=== PATIENT | male | born 1975 | race Hispanic/Latino ===

== ENCOUNTER → 2018-08-07 17:42 | Outpatient (CLI) | payer OTHER, SELFPAY ==
[2018-08-07 19:00] LABS: Influenza A and B by PCR Rapid Negative (Negative)
== END ==
PROVIDERS: Visit Provider Physician Assistant
DX: R68.89 Other general symptoms and signs (principal)
CPT/HCPCS: 87400

== ENCOUNTER → 2018-08-07 17:56 | Outpatient (CLI) | payer OTHER, SELFPAY ==
--- NOTE | 2018-08-07 18:03 | DI.RAD.S_ITS ---
PROCEDURE: XR CHEST 2V INDICATIONS: cough TECHNIQUE: 2 views of the chest were acquired. COMPARISON: None. FINDINGS: Surgical changes and devices: None. Lungs and pleura: No pleural effusions or pneumothorax. Lungs are clear. Mediastinum: Mediastinal contours are normal. Heart size is normal. Bones and chest wall: No suspicious bony abnormalities. Soft tissues appear unremarkable. IMPRESSION: No acute cardiopulmonary disease. Dictated by: Ellie Moctezuma M.D. on 08/07/2018 at 18:23 Approved by: Ellie Moctezuma M.D. on 08/07/2018 at 18:24
== END ==
PROVIDERS: Visit Provider Physician Assistant
DX: R05 Cough (principal)
CPT/HCPCS: 71046

== ENCOUNTER 2019-06-23 11:25 | Day surgery (SDC) | payer OTHER, SELFPAY ==
[2019-06-19 08:26] VITALS: BMI 32.4
[2019-06-23] VITALS (9 sets, daily range): BP systolic 93–124; BP diastolic 51–85; PULSE 62–79; RESP 12–25; TEMP 36.2–36.4; O2SAT 94–98; BMI 32.4
--- NOTE | 2019-06-23 | PATH_ITS ---
[facility] Accession Number: [id number] . 01 Material submitted: . abdomen - RIGHT ABDOMINAL WALL . 01 Clinical history: . SOFT TISSUE MASS EXCISION OF R ABD WALL CYST . 01 Diagnosis: Skin, Right Abdominal Wall, Excision: Fibroadipose tissue with chronic and active inflammation, fibrosis, and fat necrosis. Negative for malignancy. See comment. MRV 06/29/2019 1354 Local . 01 Comment: The morphologic findings favor a reactive organizing fibrous process, likely secondary to cyst rupture. . 01 Diagnosis provided by: . Sara Horta MD, Pathologist NPI- [id number] . 01 Electronically signed: . Mikaela Salazar MD, Pathologist NPI- [id number] . 01 Gross description: . Received in formalin, labeled abdominal wall soft tissue mass right, is a piece of moran-yellow hemorrhagic tissue (3.5 x 3.0 x 1.8 cm) with a bright yellow and focally pale pink fibrofatty cut surface. The tissue is inked blue. Wrap Knitting Machine Operator serial sections submitted in cassettes A1-A4. ([id number]) /MRV 06/24/2019 1116 Local . 01 Microscopic: . Areas of fibroblastic proliferation demonstrate the following profile on block A1, with appropriately staining external controls: . Beta-Catenin: Negative. SMA: Positive. CD34: Variably positive. . The immunohistochemical stains supportive fibroblastic nature of the spindled cells (SMA and CD34 positivity). Negative beta-catenin immunostain argues against fibromatosis. . * This test was developed and its performance characteristics determined by [facility]. It has not been cleared or approved by the U.S. Food and Drug Administration. The FDA has determined that such clearance or approval is not necessary. This test is used for clinical purposes. It should not be regarded as investigational or for research. . 01 Pathologist provided ICD-10: K66.8, S39.91XA . 01 CPT . 559402, S21847, R60183 Performed at: 01 [facility] [address] [place] [address] [address], [place], [place] [id number] MD Raheem Hollis MD Phone: [phone]
[2019-06-23] MEDS: LACTATED RINGERS 1,000 ML 100 ML IV (12:16)
--- NOTE | 2019-06-23 12:56 | PM.PREOP ---
Pre-operative Note Interval Note History & Physical reviewed/Exam performed by Physician: Yes Changes to H&P: No
[2019-06-23] MEDS: CEFAZOLIN 2 GM/100 ML FROZ.PIGGY IV (13:22)
--- NOTE | 2019-06-23 13:37 | SUR.OPER ---
Supine on padded OR bed, head on pillow, arms secured on padded arm boards at <90 degrees abduction, legs uncrossed, safety belt at thigh, tape over blanket over lower legs.
[2019-06-23] MEDS: BUPIVACAINE 0.25% (PF) VIAL 30 ML INJ (13:42)
--- NOTE | 2019-06-23 14:08 | PM.OP.1 ---
Operative Date/Time/Diagnoses Date of procedure: 06/23/19 Time of procedure: 14:08 Pre-op diagnosis: Abdominal wall abscess Post-op diagnosis: same Procedure & Clinicians Procedure: Excision of a abdominal wall abscess and sinus tract Same procedure as scheduled: Yes Indications: Patient is a 43-year-old male with a recurrent abscess of the abdominal wall. He has had recurring infections here despite incision and drainage. He presents today for excision of the abscess cavity and its associated sinus tract. Surgeon: Daryn Carmona Click Yes if Unassisted: Yes Anesthesia Type: General Operative Notes Findings: Clean abscess cavity Specimen(s): other (Soft tissue mass abdominal wall) Estimated Blood Loss (mL): 5 Procedure in detail: Patient brought to the operating room placed supine on the table. Bilateral lower extremity compression devices were applied. Anesthesia was induced and he was intubated with LMA. He received 2 g of Ancef prior to skin incision. The incision was made over the abdominal wall the previous abscess. The subcutaneous tissues were divided with electrocautery. A prior abscess cavity and associated sinus tract were identified. This was excised circumferentially and passed off the field as specimen. The wound was thoroughly irrigated. Hemostasis was checked. The subcutaneous tissues which were clean of infection and reapproximated using 3 0 Vicryl. Skin was loosely closed with nylon sutures to allow for drainage. Patient tolerated procedure well. The sponge instrument count and the operation was correct. Patient emerged from anesthesia was transferred to postoperative care unit in stable condition Complications: none Post-operative Condition: stable Disposition: same day surgery
--- NOTE | 2019-06-23 14:23 | SUR.PHASEI ---
Patient required 02 via face mask, currently on RA with 02 sats ay 93%. States pain is tolerable. Denies nausea. Tolerating ice chips.
--- NOTE | 2019-06-23 14:45 | SUR.PHASEII ---
HOB elevated, applesause given in prep for oral pain med. No nausea. Pain 4-5 /10. Resp unlabored, skin warm and dry, oriented.
[2019-06-23] MEDS: OXYCODONE/ACETAMINOPHEN 5/325 TABLET 1 TAB PO (14:50)
--- NOTE | 2019-06-23 15:18 | SUR.PHASEII ---
1515 here, informed of instructions and time when pain med was given. Pt dressed, taken to [facility] in a wheelchair; will obtain Rx there. Pt appreciative of care given. Stable for discharge.
== END 2019-06-23 15:15 | disposition home or self-care (01) ==
PROVIDERS: PCP Student in an Organized Health Care Education/Training Program; Visit Provider Surgery
PROC: (CPT 11406; principal; 2019-06-23 12:45)
DX: L02.211 Cutaneous abscess of abdominal wall (principal); K66.8 Other specified disorders of peritoneum
CPT/HCPCS: 11406; J0690; J2250; J2405; J2704; J3010

== ENCOUNTER → 2019-07-06 10:37 | Outpatient (CLI) | payer OTHER, SELFPAY ==
[2019-07-06 12:01] LABS: BUN Creatinine Ratio 17.5 (6-22); Blood Urea Nitrogen 14 mg/dL (9-20); Calcium 9.5 mg/dL (8.4-10.2); Carbon Dioxide 29 mmol/L (22-32); Chloride 103 mmol/L (98-107); Cholesterol 195 mg/dL (140-199); Estimated Glomerular Filt Rate > 60.0 mL/min (>60); Glucose 88 mg/dL (70-100); HDL Cholesterol 37 mg/dL (40-60); HEMOLYSIS < 15 (0-50); LDL Cholesterol Calculated 125 mg/dL (<100); Potassium 3.9 mmol/L (3.4-5.1); Sodium 140 mmol/L (137-145); Triglycerides 167 mg/dL (35-150)
[2019-07-06 12:18] LABS: Vitamin D 25 Hydroxy (D3) 30.2 ng/mL (30.0-100.0)
[2019-07-09 21:36] LABS: Chromium, Plasma 0.6 mcg/L (< 1.3)
== END ==
PROVIDERS: PCP Student in an Organized Health Care Education/Training Program; Visit Provider Student in an Organized Health Care Education/Training Program
DX: E55.9 Vitamin D deficiency, unspecified (principal); E65 Localized adiposity; Z13.220 Encounter for screening for lipoid disorders; Z77.018 Contact with and (suspected) exposure to other hazardous metals
CPT/HCPCS: 36415; 80048; 80061; 82306; 82495; 83655

== ENCOUNTER → 2019-07-17 14:04 | Outpatient (CLI) | payer OTHER, SELFPAY ==
--- NOTE | 2019-07-17 14:19 | DI.CT.S_ITS ---
PROCEDURE: CT ABDOMEN PELVIS W CON INDICATIONS: recurrent abdominal wall abscess; IV contrast only TECHNIQUE: After the administration of intravenous contrast, 5 mm thick sections acquired from the diaphragm to the symphysis. 5 mm coronal and sagittal reformats were acquired. For radiation dose reduction, the following was used: automated exposure control, adjustment of mA and/or kV according to patient size. COMPARISON: None. FINDINGS: Image quality: Excellent. ABDOMEN: Lung bases: Lung bases are clear. Heart size is normal. Solid organs: Liver is normal in size. Hepatic steatosis is seen. A small 6 mm cyst is noted in the inferior left hepatic lobe. Gallbladder is within normal limits. Biliary system is non dilated. Pancreas enhances normally. Spleen is normal in size and enhancement. No adrenal nodules. Kidneys demonstrate normal size and enhancement, without hydronephrosis. Peritoneum and bowel: Bowel loops demonstrate normal wall thickness and caliber. No free fluid or air. Nodes and vessels: No retroperitoneal or mesenteric adenopathy by size criteria. Aorta and inferior vena cava are normal in size. Miscellaneous: No ventral hernias. Anterior abdominal wall thickening with subcutaneous fat stranding is noted just to the right of midline with ill-defined hypodensity deep to skin and superficial right anterior abdominal wall, measures up to 3.5 x 2.1 x 1 cm in its largest transverse, AP, and craniocaudal dimensions, concerning for tiny abscess collection within the anterior abdominal wall. PELVIS: Genitourinary: Bladder wall thickness is normal. Miscellaneous: No inguinal hernias or adenopathy. Bones: No suspicious bony lesions. No vertebral body compression fractures. IMPRESSION: 1. Findings consistent with cellulitis and small underlying 3.5 x 2.1 x 1 cm subcutaneous soft tissue abscess collection in anterior abdominal wall slightly more to the right of midline. 2. No peritoneal free fluid or free air. No bowel structure. No abnormal bowel wall thickening. 3. Hepatic steatosis. Small hepatic cyst as above. Dictated by: Herb Gifford M.D. on 07/17/2019 at 15:04 Approved by: Herb Gifford M.D. on 07/17/2019 at 15:11
[2019-07-17 17:23] LABS: BUN Creatinine Ratio 15.6 (6-22); Blood Urea Nitrogen 14 mg/dL (9-20); Carbon Dioxide 31 mmol/L (22-32); Chloride 101 mmol/L (98-107); Estimated Glomerular Filt Rate > 60.0 mL/min (>60); Glucose 76 mg/dL (70-100); HEMOLYSIS 20 (0-50); Potassium 4.2 mmol/L (3.4-5.1); Sodium 141 mmol/L (137-145)
== END ==
PROVIDERS: PCP Student in an Organized Health Care Education/Training Program; Visit Provider Surgery
DX: L02.211 Cutaneous abscess of abdominal wall (principal); K76.0 Fatty (change of) liver, not elsewhere classified; K76.89 Other specified diseases of liver
CPT/HCPCS: 36415; 74177; 80048; Q9967

== ENCOUNTER 2019-07-17 17:02 | Day surgery (SDC) | payer OTHER, SELFPAY ==
[2019-07-17] VITALS (10 sets, daily range): BP systolic 110–126; BP diastolic 60–78; PULSE 72–84; RESP 14–20; TEMP 36.4–37.3; O2SAT 91–98; BMI 32.1
[2019-07-17] MEDS: LACTATED RINGERS 1,000 ML 42 ML IV (17:51)
--- NOTE | 2019-07-17 18:40 | PM.PREOP ---
Pre-operative Note Interval Note History & Physical reviewed/Exam performed by Physician: Yes Changes to H&P: No H&P completed within 30 days and has changed as indicated here:: Risks and benefits of incision, drainage, and debridement of abdominal wall abscess were discussed including bleeding, infection, damage to local structures, need for additional procedures, need for prolonged wound care. The patient desires to proceed.
[2019-07-17] MEDS: VANCOMYCIN 1,500 MG/300 ML FROZ.PIGGY 200 MG IV (19:27)
--- NOTE | 2019-07-17 19:38 | SUR.OPER ---
Supine on padded OR bed, head on pillow, arms secured on padded arm boards at <90 degrees abduction, legs uncrossed, safety belt at thigh, tape over blanket over lower legs.
[2019-07-17] MEDS: BUPIVACAINE 0.25% W/ EPI 30 ML VIAL INJ (19:43)
--- NOTE | 2019-07-17 20:16 | P.OP_ITS ---
Operative Date/Time/Diagnoses Date of procedure: 07/17/19 Time of procedure: 20:16 Pre-op diagnosis: Recurrence abdominal wall abscess Post-op diagnosis: same Procedure & Clinicians Procedure: Incision and debridement of abdominal wall abscess Same procedure as scheduled: Yes Indications: Abdominal wall abscess which has recurred for the 3rd time Surgeon: Fozia Aleman Click Yes if Unassisted: Yes Anesthesia Type: General Operative Notes Findings: Superficial abscess with a tract going down to the fascia Closure Type: non-primary (The wound was held open by two [place] drains looped laterally through counter incisions, and packing center of wound) Specimen(s): other (Culture of abdominal wall abscess) Estimated Blood Loss (mL): 5 Procedure in detail: The patient was brought to the operating room identified, and placed supine on the operating table. Sequential compression devices were placed on both legs and turned on. Appropriate perioperative antibiotics were given. General anesthesia was induced the patient was intubated with an LMA by the anesthesiologist. The abdomen was prepped and draped in sterile fashion using Betadine paint. A time-out was conducted. Local anesthetic was injected circumferentially around the wound using 0.25% Marcaine with epi. A transverse incision was made through the fluctuant part of the wound with a 15 blade, and copious purulent fluid drained out. This was cultured and sent for microbiology. I used my index finger to palpate within the wound and was able to easily fracture open that soft tissue down to the fascia. Another pocket of purulent fluid was found deeper next to the fascia. Copious saline was used to irrigate out the wound. All visible Vicryl suture was removed from the wound. There was no particular nidus of infection found. There was a small area of necrotic tissue on the inferior left border of the wound within the abdominal wall. This was sharply debrided, excising about 5 mm x 1 cm of tissue. The wound was again irrigated with saline. There was no foul odor. The wound appeared clean, and the remaining tissue was healthy and bleeding. I made a lateral stab incision about 4 cm away from the incision on the right side and looped a ipx-oedymre-sbye David drain through the incision and out through the lateral stab incision. I tied the [place] to itself. I did this again on the left side of the wound in the same fashion. I then packed the center of the wound with a saline moistened 4 x 4 gauze. The wound was then covered with a stack of 4x4s and secured with Medipore tape. The patient was awakened from anesthesia and extubated. He tolerated the procedure well. Needle sponge and instrument counts were correct x2 at the end of the case. Patient was transferred to the PACU in stable condition. Complications: none Post-operative Condition: stable Disposition: PACU
--- NOTE | 2019-07-17 20:24 | SUR.PHASEI ---
Phase I post op note: Patient arrive to PACU at 2000 via stretcher. Sedated but easily arousable to soft voice. Respirations regular and unlabored. VSS, O2 sat WNL on RA. IV patent. Dressing CDI to lower abdomen. No drainage noted. Denies any pain or discomfort. Tolerating po without nausea.
[2019-07-17] MEDS: LACTATED RINGERS 1,000 ML 21 ML IV (21:07)
[2019-07-17] MEDS: DOCUSATE 100 MG CAPSULE PO (21:14)
[2019-07-17] MEDS: KETOROLAC 15 MG/ML VIAL IV (23:04)
[2019-07-17] MEDS: OXYCODONE IR 10 MG TABLET PO (23:05)
--- NOTE | 2019-07-17 23:23 | PC.NURSE ---
A&OX3. 93% RA. Bilat wheezes. smoker. pt denied n/v. tolerated his general diet. abd tender and pink, dressing cdi. IVF-TKO. sba to the BR. call light in reach. oriented pt to the room.
[2019-07-18 03:19] VITALS: BP 95/57; PULSE 62; RESP 16; TEMP 37; O2SAT 92
[2019-07-18] MEDS: ACETAMINOPHEN 325 MG TABLET 650 MG PO (04:33)
[2019-07-18] MEDS: OXYCODONE IR 10 MG TABLET PO (06:39)
--- NOTE | 2019-07-18 08:07 | PM.PN.1 ---
Subjective Subjective Date Patient Seen: 07/18/19 Time Patient Seen: 08:07 Interval history: No acute events overnight. Pain well controlled with PO pain med. Exam Vital Signs (past 8 hours): - 07/18/19 03:19 Temperature 98.6 F Pulse Rate 62 Respiratory Rate 16 Blood Pressure 95/57 L Pulse Oximetry 92 Oxygen Delivery Method Room Air Oxygen Flow Rate 0 Narrative Exam Narrative: GENERAL: Well groomed and cooperative. Appears stated age. Answers questions promptly and appropriately. Vital signs noted. HENT: Normocephalic, atraumatic. Hearing intact. Oral mucosa is pink and moist. EYES: Conjunctiva pink, sclera white, no periorbital swelling. CARDIOVASCULAR: Regular rate. No pedal edema. RESPIRATORY: Normal respiratory rate, breathing comfortably on room air. GASTROINTESTINAL: Abdomen soft and non-distended; lower abdominal wall surgical wound with David drains in place and 4 cm transverse incision clean without foul odor or active bleeding. Packing removed during exam, covered with dry dressing. GENITALURINARY: No flank tenderness. MUSCULOSKELETAL: Normal gait and coordination. Equal tone and mass bilaterally. SKIN: Warm, dry, soft, appropriate color for ethnicity. No other lesions, rashes, or wounds. PSYCH: Appropriate affect and mood. Assessment & Plan Assessment and plan (1) Abdominal wall abscess: Problem details: The patient will be discharged home today with plans to see him next Saturday for follow-up and wound check. Plan: Daily wound care as per discharge instructions P.o. pain med No antibiotics needed at this time Follow-up next Saturday in the office Current visit: No Status: Acute Quality VTE Deep Vein Thrombosis/Pulmonary Embolism Present on Admission: No
--- NOTE | 2019-07-18 08:47 | PC.NURSE ---
Day shift: Pt left unit via WC to car driven by friend by this story writer. Paperwork signed and all questions answered. Pt has some dressing supplies and has been instructed on dressing changes. Pt has all personal belongings. Pt has MD asif.
--- NOTE | 2019-07-18 10:45 | CM.DANOTE ---
Discharge Planning/Care Management DCP: assessment: case received this morning and discussed in Team Rounds. Pt is a 43 year old male who admitted to care of [facility] yesterday for an I&D os abdominal wall abscess. Scheduled surgery. Surgeon: Dr. Aleman. Payer: Juliette PCP: Stu Aleman did see pt this morning and ok'd him for d/c to home setting. He left for home with friend driving at 0830. No concerns re the d/c today were noted by care team members. CM Discharge Assessment Start: 07/18/19 10:44 Freq: Status: Active Protocol: Document 07/18/19 10:44 ITV (Rec: 07/18/19 10:45 ITV [id number]) Discharge Planning Assessment Advance Directives? Yes History Provided By Medical Record Prior Living Arrangements House Household Members spouse,children Review Status In Process
== END 2019-07-18 08:48 | disposition home or self-care (01) ==
LOC: OR 17:07 → AC 20:35
PROVIDERS: PCP Student in an Organized Health Care Education/Training Program; Visit Provider Surgery
PROC: (CPT 11042; principal; 2019-07-17 18:30)
DX: L02.211 Cutaneous abscess of abdominal wall (principal); T81.41XA Infection following a procedure, superficial incisional surgical site, initial encounter; K76.0 Fatty (change of) liver, not elsewhere classified; K76.89 Other specified diseases of liver
CPT/HCPCS: 11042; 36415; 74177; 80048; 87070; 87075; 87205; J1885; J2405; J2704; J3010; Q9967

== ENCOUNTER → 2020-04-07 09:16 | Outpatient (CLI) | payer OTHER, SELFPAY ==
[2020-02-05 08:08] VITALS: BMI 32.1
[2020-04-08 09:58] LABS: COVID19 Sendout Not Detected (Not Detect)
== END ==
PROVIDERS: PCP Student in an Organized Health Care Education/Training Program; Visit Provider Physician Assistant
DX: Z11.59 Encounter for screening for other viral diseases (principal)
CPT/HCPCS: 87635

== ENCOUNTER → 2020-06-08 08:41 | Outpatient (CLI) | payer OTHER, SELFPAY ==
[2020-02-05 08:08] VITALS: BMI 32.1
[2020-06-09 09:27] LABS: COVID19 Sendout Not Detected (Not Detect)
== END ==
PROVIDERS: PCP Student in an Organized Health Care Education/Training Program; Visit Provider Physician Assistant
DX: Z11.59 Encounter for screening for other viral diseases (principal)
CPT/HCPCS: 87635

== ENCOUNTER → 2020-07-07 08:09 | Outpatient (CLI) | payer OTHER, SELFPAY ==
[2020-02-05 08:08] VITALS: BMI 32.1
[2020-07-08 07:43] LABS: COVID19 Sendout Not Detected (Not Detect)
== END ==
PROVIDERS: PCP Student in an Organized Health Care Education/Training Program; Visit Provider Physician Assistant
DX: Z11.59 Encounter for screening for other viral diseases (principal)
CPT/HCPCS: 87635

== ENCOUNTER → 2021-02-06 17:37 | Outpatient (CLI) | payer OTHER, SELFPAY ==
[2020-02-05 08:08] VITALS: BMI 32.1
[2021-02-06 17:59] LABS: Add Manual Diff / Slide Review NO; Basophils Absolute Auto 100 /uL (0-100); Basophils Percent Auto 0.8 % (0-2); Eosinophils Absolute Auto 1400 /uL (0-450); Eosinophils Percent Auto 12.4 % (2-4); Hematocrit 44.4 % (41-53); Hemoglobin 15.2 g/dL (13.5-17.5); Lymphocytes Absolute Auto 3300 /uL (1100-4500); Lymphocytes Percent Auto 29.1 % (25-40); Mean Corpuscular HGB Conc 34.3 % (30-36); Mean Corpuscular Volume 90.3 fL (80-100); Monocytes Absolute Auto 700 /uL (0-900); Monocytes Percent Auto 6.2 % (3-14); Neutrophils Absolute Auto 5800 /uL (1500-7000); Neutrophils Percent Auto 51.5 % (50-75); Platelet Count 160 X10^3/uL (150-400); Red Blood Cell Count 4.91 X10^6/uL (4.5-5.9); Red Cell Distribution Width 13.3 % (11.6-14.8); White Blood Cell Count 11.2 X10^3/uL (4.5-11.0)
[2021-02-06 18:14] LABS: Hemoglobin A1C% w Est Avg Glu 5.3 % (4.0-6.0)
[2021-02-06 18:36] LABS: BUN Creatinine Ratio 12.8 (6-22); Blood Urea Nitrogen 12 mg/dL (9-20); Calcium 9.7 mg/dL (8.4-10.2); Carbon Dioxide 28 mmol/L (22-32); Chloride 104 mmol/L (98-107); Estimated Glomerular Filt Rate > 60.0 mL/min (>60); Glucose 94 mg/dL (70-100); HEMOLYSIS < 15 (0-50); Potassium 4.2 mmol/L (3.4-5.1); Sodium 140 mmol/L (137-145)
[2021-02-06 19:09] LABS: TSH w/ Reflex to FT4 2.19 uIU/mL (0.47-4.68)
[2021-02-06 19:43] LABS: Folate 9.7 ng/mL (2.76-20.0); Vitamin B12 794 pg/mL (239-931)
== END ==
PROVIDERS: PCP Student in an Organized Health Care Education/Training Program; Referring Provider Student in an Organized Health Care Education/Training Program; Visit Provider Student in an Organized Health Care Education/Training Program
DX: G62.9 Polyneuropathy, unspecified (principal); E66.9 Obesity, unspecified
CPT/HCPCS: 36415; 80048; 82607; 82746; 83036; 84443; 85025

== ENCOUNTER → 2021-11-28 09:09 | Outpatient (CLI) | payer OTHER, SELFPAY ==
[2020-02-05 08:08] VITALS: BMI 32.1
[2021-11-28 10:46] LABS: Add Manual Diff / Slide Review NO; Basophils Absolute Auto 100 /uL (0-100); Basophils Percent Auto 0.8 % (0-2); Eosinophils Absolute Auto 800 /uL (0-450); Eosinophils Percent Auto 10.1 % (2-4); Hematocrit 45.2 % (41-53); Hemoglobin 15.6 g/dL (13.5-17.5); Lymphocytes Absolute Auto 2600 /uL (1100-4500); Lymphocytes Percent Auto 32.2 % (25-40); Mean Corpuscular HGB Conc 34.5 % (30-36); Mean Corpuscular Hemoglobin 30.9 PG (26-34); Mean Corpuscular Volume 89.4 fL (80-100); Monocytes Absolute Auto 500 /uL (0-900); Monocytes Percent Auto 6.3 % (3-14); Neutrophils Absolute Auto 4000 /uL (1500-7000); Neutrophils Percent Auto 50.6 % (50-75); Platelet Count 171 X10^3/uL (150-400); Red Blood Cell Count 5.05 X10^6/uL (4.5-5.9); Red Cell Distribution Width 12.8 % (11.6-14.8); White Blood Cell Count 7.9 X10^3/uL (4.5-11.0)
[2021-11-28 12:23] LABS: Testosterone 215 ng/dL (132-813)
== END ==
PROVIDERS: PCP Student in an Organized Health Care Education/Training Program; Referring Provider Student in an Organized Health Care Education/Training Program; Visit Provider Student in an Organized Health Care Education/Training Program
DX: D72.10 Eosinophilia, unspecified (principal); L65.9 Nonscarring hair loss, unspecified; R53.83 Other fatigue
CPT/HCPCS: 36415; 84403; 85025

== ENCOUNTER → 2022-01-24 09:55 | Outpatient (CLI) | payer OTHER, SELFPAY ==
[2020-02-05 08:08] VITALS: BMI 32.1
[2022-01-24 10:44] LABS: COVID19 -Nasal RAPID POSITIVE (Negative)
== END ==
PROVIDERS: PCP Student in an Organized Health Care Education/Training Program; Visit Provider Surgery
DX: Z01.812 Encounter for preprocedural laboratory examination (principal); U07.1 COVID-19; Z20.822 Contact with and (suspected) exposure to COVID-19
CPT/HCPCS: 87635; C9803

== ENCOUNTER 2024-01-09 08:18 | Day surgery (SDC) | payer OTHER, SELFPAY ==
[2022-02-15 15:18] VITALS: BMI 32.1
--- NOTE | 2024-01-09 | PATH_ITS ---
[facility] Accession Number: [id number] No. of containers..01 Tissue . 01 Material submitted: . colon - SIGMOID POLYP . 01 Diagnosis: SIGMOID COLON, POLYP: Hyperplastic polyp. MRV 01/15/2024 1456 Local . 01 Electronically signed: . Maria Del Carmen Macdonald MD, Pathologist NPI- [id number] . 01 Gross description: . SIGMOID POLYP: Received in formalin is 1 fragment(s) of moran, soft tissue measuring 0.6 x 0.5 x 0.5 cm submitted entirely in 1 cassette(s) /HERMAN 01/10/2024 0120 Local . 01 Pathologist provided ICD-10: K63.5 . 01 CPT . 851563 Specimen Comment: A courtesy copy of this report has been sent to [phone] Performed at: 01 [facility] [address] [place] [address], [place], [place] [id number] MD Raheem Hollis MD Phone: [phone]
[2024-01-09 08:46] VITALS: BP 133/86; PULSE 75; RESP 16; TEMP 36.4; O2SAT 97
[2024-01-09] MEDS: LACTATED RINGERS 1,000 ML 42 ML IV (09:00)
--- NOTE | 2024-01-09 09:04 | PM.HP.1 ---
History of Present Illness History of Present Illness Date Patient Seen: 01/09/24 Time Patient Seen: 09:04 Chief complaint: Screening Colonoscopy Narrative: Leo is a 48-year-old man who is here for a screening colonoscopy his first. No family history of colon cancer. [facility] Medical History Abdominal wall abscess Chicken pox Obesity (BMI 30.0-34.9) Surgical History History of incision and drainage (04/29/19) [place] teeth removed Family History Father Diabetes mellitus Brother Hypertension Overweight Brother Overweight Grandmother Diabetes mellitus Hypertension Hyperlipidemia Stroke Grandfather Heart disease Hypertension Grandmother Diabetes mellitus Hypertension Heart disease Social History household members: spouse and children Smoking Status: Current some day smoker Meds Home Medications and Allergies Home Medications Medication Instructions Recorded Confirmed Type varenicline 1 mg tablet 1 mg PO BID 11/27/21 01/09/24 History Allergies Allergy/AdvReac Type Severity Reaction Status Date / Time No Known Drug Allergies Allergy Verified 05/24/23 11:41 Exam Vital Signs (past 8 hours): - 01/09/24 08:46 Temperature 97.6 F Pulse Rate 75 Respiratory Rate 16 Blood Pressure 133/86 Pulse Oximetry 97 Oxygen Delivery Method Room Air Oxygen Delivery Method Room Air Const General: No acute distress Resp Effort & Inspection: normal respiratory effort Assessment & Plan Assessment and plan (1) Colon cancer screening: Status: Acute Plan We reviewed the risks and benefits of colonoscopy for colon cancer screening and he would like to proceed.
--- NOTE | 2024-01-09 10:07 | PM.OP.COLON ---
Operative Date/Time/Diagnoses Date of procedure: 01/09/24 Time of procedure: 10:08 Pre-op diagnosis: Colon cancer screening Post-op diagnosis: same Procedure & Clinicians Study performed: Colonoscopy Same procedure as scheduled: Yes Surgeon: Rebel Mckeon Procedure Notes Procedure in detail: Surgeon: Rebel Mckeon MD Anesthesia: Stephani Bales DO Procedure: The patient was brought to the endoscopy suite, placed in left lateral decubitus position. The patient was connected to monitoring devices. A time-out was performed. Sedation was administered. Once the patient was adequately sedated, a digital rectal exam was performed and was normal. The scope was then inserted and advanced to the cecum where the appendiceal orifice was identified and photographed. The scope was then slowly withdrawn over greater than 6 minutes. There was semi solid stool in the proximal and distal colon preventing a complete examination. As much as possible the stool was irrigated and suctioned but could not be completely cleared. There was a 7 mm polyp in the sigmoid colon removed with a cold snare. The scope was retroflexed in the rectum. No other abnormalities were seen. The scope was straightened and removed. The patient was awakened and brought to recovery. Scope withdrawal time: 8 minutes Sedation time: 20 minutes EBL: 3 mL Findings: Inadequate prep, 7 mm polyp in the sigmoid colon Post-procedure Recommendations: Colonoscopy in 1 year Disposition: PACU
[2024-01-09 10:10] VITALS: BP 97/57; PULSE 70; RESP 17; TEMP 36.3; O2SAT 94
[2024-01-09 10:15] VITALS: BP 124/69; PULSE 69; RESP 22; O2SAT 93
[2024-01-09 10:20] VITALS: BP 123/72; PULSE 64; RESP 25; O2SAT 95
[2024-01-09 10:24] VITALS: BP 125/79; PULSE 64; RESP 22; TEMP 36.7; O2SAT 95
== END 2024-01-09 10:50 | disposition home or self-care (01) ==
PROVIDERS: Referring Provider Surgery; Visit Provider Surgery
PROC: 0DJD8ZZ Inspection of Lower Intestinal Tract, Via Natural or Artificial Opening Endoscopic (ICD-10-PCS; CPT 45378; principal; 2024-01-09 09:15)
DX: Z12.11 Encounter for screening for malignant neoplasm of colon (principal); K63.5 Polyp of colon
CPT/HCPCS: 45385; J2704

== ENCOUNTER → 2025-01-05 16:46 | Outpatient (ROUT) | payer OTHER, SELFPAY ==
[2022-02-15 15:18] VITALS: BMI 32.1
[2025-01-05 17:32] LABS: Influenza A - CEPHEID Flu A NEGATIVE (NEGATIVE); Influenza B - CEPHEID Flu B NEGATIVE (NEGATIVE); Respiratory Syncytial Virus Negative (Negative)
[2025-01-05 17:33] LABS: COVID-19 CEPHEID 4-PLEX PCR Negative (Negative)
== END ==
PROVIDERS: Visit Provider Family Medicine
DX: R05.1 Acute cough (principal)
CPT/HCPCS: 0241U

== ENCOUNTER → 2025-09-20 07:52 | Outpatient (CLI) | payer OTHER, SELFPAY ==
[2022-02-15 15:18] VITALS: BMI 32.1
--- NOTE | 2025-09-20 07:53 | DI.CT.S_ITS ---
PROCEDURE: CT CHEST WO CON INDICATIONS: Peripheral edema TECHNIQUE: Noncontrast 5 mm thick sections acquired from the pulmonary apices to the posterior costophrenic angles. 1 mm lung window, 5 mm thick coronal and sagittal and 7 mm axial MIP reformats were then acquired. For radiation dose reduction, the following was used: automated exposure control, adjustment of mA and/or kV according to patient size. COMPARISON: None. FINDINGS: Image quality: Diagnostic. Lower Neck: No enlarged lymph nodes. Thyroid: No thyroid nodules which require sonographic follow up, per consensus guidelines. Axillae: No enlarged lymph nodes. Chest Wall: Unremarkable. Bones: Unremarkable. Lungs and Pleura: No pneumothorax or pleural effusions. Juxtapleural nodules with smooth margins, favoring benign intrapulmonary lymph nodes. Heart: Heart size is normal. No pericardial effusion. Thoracic Vessels: The aorta and pulmonary arteries demonstrate normal size. Mediastinum and Heidi: No enlarged lymph nodes. Esophagus: No wall thickening. No hiatal hernia. Upper Abdomen: Visualized upper abdomen solid organs and bowel loops appear normal. IMPRESSION: No findings to explain the patient's shortness of breath. Dictated by: Baron Arriola M.D. on 09/20/2025 at 9:19 Approved by: Baron Arriola M.D. on 09/20/2025 at 10:13
== END ==
PROVIDERS: PCP Family Medicine; Referring Provider Family Medicine; Visit Provider Family Medicine
DX: R60.0 Localized edema (principal); R05.3 Chronic cough; F17.210 Nicotine dependence, cigarettes, uncomplicated
CPT/HCPCS: 71250